=== PATIENT | male | born 1995 | race Caucasian/White ===

== ENCOUNTER 2017-04-16 07:46 | Emergency (ER) | payer BC ==
--- NOTE | 2017-04-16 07:55 | CPEKG ---
Heart Rate: 89 RR Interval: 674 P-R Interval: 156 QRSD Interval: 88 QT Interval: 352 QTC Interval: 429 P [place]: 51 QRS [place]: 44 T Wave [place]: 33 EKG Severity - NORMAL ECG - EKG Impression: SINUS RHYTHM EKG Impression: ST ELEV, PROBABLE NORMAL EARLY REPOL PATTERN Electronically Signed By: Dionne Cooper 19-Apr-2017 00:55:20
[2017-04-16 07:58] VITALS: RESP 18
[2017-04-16] MEDS ORDERED: NS 1,000 ML IV ONE (08:07)
--- NOTE | 2017-04-16 08:10 | EDPHY ---
HPI/HX/ROS/PE/MDM Narrative: CHIEF COMPLAINT: Chest pain HPI: This patient is a 21-year-old male who presents to the Emergency Department complaining of acute onset bilateral lower chest pain beginning one hour prior to arrival while playing video games. He reports that the pain increased in severity until EMS arrival but briefly subsided prior to presentation. He describes the pain as a squeezing sensation "as though his ribs were in a vice." His pain is exacerbated with breathing or with certain movements, like sitting up straight in a chair. He denies any associated complaints; no dyspnea, nausea, or abdominal pain. No history of trauma. He did have a bout of diarrhea yesterday which was treated effectively with Imodium. Medical history includes hypertension. Familial history includes hypertension, diabetes, and cholecystitis. REVIEW OF SYSTEMS: Aside from elements discussed in the HPI, a comprehensive 10-point review of systems was reviewed and is negative. PMH: Hypertension SOCIAL HISTORY: Mother at bedside. Non-smoker. PHYSICAL EXAM: General:Patient is alert, in no acute distress. ENT:Eyes are normal to inspection. ENT inspection normal. Neck: Normal inspection. Full range of motion. Respiratory:No respiratory distress. Breath sounds normal bilaterally. Cardiovascular: Regular rate and rhythm. Strong peripheral pulses. Normal cap refill. Abdomen:The abdomen is nontender to palpation. There are no peritoneal signs. There are normal bowel sounds. Back: Normal to inspection. No tenderness to palpation. Skin: Normal color. No rash. Warm and dry. Extremities: Normal appearance. Full range of motion. Neuro: Oriented x3. Normal motor function. Normal sensory function. ED Course: 21-year-old male with familial history of hypertension and cholecystitis complains of sudden onset bilateral lower rib pain that is exacerbated with some movements and with taking a deep breath. There is some suggestion that his pain has been intermittent in nature since time of presentation approximately one hour prior to arrival. He is hypertensive at 158/96 at time of arrival but has otherwise normal vitals. There are no significant findings on exam. He is not tachypneic or tachycardic. There is no abdominal tenderness. Will proceed with EKG, chest x-ray, and labs including D-dimer and Troponin. IV established. 1L IV NS administered. EKG was ordered and interpreted by myself. Please see [employer] system for official reading. Chest x-ray reviewed and is normal. No pneumothorax or other acute process. Labs obtained and are largely unremarkable. D-dimer is negative. Troponin is negative. UA obtained and is normal. I discussed lab, UA, imaging, and EKG findings with the patient. At this time, there is no clear etiology for the patient's chest pain. On reevaluation, his pain has subsided. He is able to ambulate around the department without recurrence of his complaint. I do not feel that further evaluation is warranted at this time. I have given him strict return precautions and instructions to follow-up with cardiology for further evaluation this week. He is agreeable to this and will be discharged home in good condition. MDM: This is a young healthy male who presents with episodic bilateral squeezing chest pain. The patient presents with chest pain, but workup in the Emergency Department is negative. The patient is hemodynamically stable and comfortable with the plan of discharge and close follow-up as an outpatient. As part of an extensive differential, the following life-threatening etiologies of chest pain were considered and found to be unlikely: Acute Coronary Syndrome - This is unlikely as troponin and ECG are negative and patient has no specific risk factors for this disease. Pneumonia - The patient is afebrile and has a clear CXR. Thoracic Aortic Dissection - The patient is not significantly hypertensive and nature of the chest pain is not typical for this disease. CXR shows no stigmata of TAD. Pulmonary Embolus - The patient has no risk factors for this disease per Well's Criteria. D-dimer is negative. Clinical exam and history are not consistent with acute PE. Pericarditis- The patient is afebrile and has a normal ECG. Additionally, patient has no epigastric tenderness or abnormal LFTs to suggest gallbladder disease. The patient was advised of these results and was given strict return precautions. At time of discharge he is ambulating and eating without any difficulty or return of symptoms. Patient was advised that etiology of symptoms is unknown. - Data Points Imaging Results: Imaging Impressions Chest X-Ray 04/16/17 08:07 Impression: Normal. No pneumothorax or acute process. Laboratory Results: Laboratory Results 04/16/17 08:00 04/16/17 04/16/17 04/16/17 09:00 08:00 08:00 WBC RBC Hgb Hct MCV MCH MCHC RDW Plt Count MPV Neut % (Auto) Lymph % (Auto) Leon % (Auto) Eos % (Auto) Baso % (Auto) Nucleat RBC Rel Count Absolute Neuts (auto) Absolute Lymphs (auto) Absolute Monos (auto) Absolute Eos (auto) Absolute Basos (auto) Absolute Nucleated RBC Immature Gran % Immature Gran # D-Dimer < 0.27 ug/mLFEU ug/mLFEU (0.00-0.50) Total Bilirubin 0.8 mg/dL mg/dL (0.1-1.4) Conjugated Bilirubin 0.3 mg/dL mg/dL (0.0-0.5) Unconjugated Bilirubin 0.5 mg/dL mg/dL (0.0-1.1) AST 48 IU/L IU/L (17-59) ALT 65 IU/L IU/L (21-72) Alkaline Phosphatase 136 IU/L H IU/L (38-126) Troponin I < 0.012 ng/mL ng/mL (0-0.034) Total Protein 8.5 g/dL H g/dL (6.3-8.2) Albumin 5.1 g/dL H g/dL (3.5-5.0) Lipase 74.0 IU/L IU/L (23-300) Urine Color YELLOW Urine Appearance CLEAR Urine pH 6.0 (5.0-7.5) Ur Specific [place] 1.017 (1.002-1.030) Urine Protein NEGATIVE (NEGATIVE) Urine Ketones TRACE H (NEGATIVE) Urine Blood NEGATIVE (NEGATIVE) Urine Nitrate NEGATIVE (NEGATIVE) Urine Bilirubin NEGATIVE (NEGATIVE) Urine Urobilinogen NEGATIVE EU EU (0.2-1.0) Ur Leukocyte Esterase NEGATIVE (NEGATIVE) Urine Glucose NEGATIVE (NEGATIVE) 04/16/17 08:00 WBC 9.09 10^3/uL 10^3/uL (3.80-9.50) RBC 5.44 10^6/uL 10^6/uL (4.40-6.38) Hgb 16.6 g/dL g/dL (13.7-17.5) Hct 48.4 % % (40.0-51.0) MCV 89.0 fL fL (81.5-99.8) MCH 30.5 pg pg (27.9-34.1) MCHC 34.3 g/dL g/dL (32.4-36.7) RDW 13.0 % % (11.5-15.2) Plt Count 361 10^3/uL 10^3/uL (150-400) MPV 10.2 fL fL (8.7-11.7) Neut % (Auto) 59.1 % % (39.3-74.2) Lymph % (Auto) 26.7 % % (15.0-45.0) Leon % (Auto) 8.3 % % (4.5-13.0) Eos % (Auto) 5.4 % % (0.6-7.6) Baso % (Auto) 0.3 % % (0.3-1.7) Nucleat RBC Rel Count 0.0 % % (0.0-0.2) Absolute Neuts (auto) 5.37 10^3/uL 10^3/uL (1.70-6.50) Absolute Lymphs (auto) 2.43 10^3/uL 10^3/uL (1.00-3.00) Absolute Monos (auto) 0.75 10^3/uL 10^3/uL (0.30-0.80) Absolute Eos (auto) 0.49 10^3/uL H 10^3/uL (0.03-0.40) Absolute Basos (auto) 0.03 10^3/uL 10^3/uL (0.02-0.10) Absolute Nucleated RBC 0.00 10^3/uL 10^3/uL (0-0.01) Immature Gran % 0.2 % % (0.0-1.1) Immature Gran # 0.02 10^3/uL 10^3/uL (0.00-0.10) D-Dimer Total Bilirubin Conjugated Bilirubin Unconjugated Bilirubin AST ALT Alkaline Phosphatase Troponin I Total Protein Albumin Lipase Urine Color Urine Appearance Urine pH Ur Specific [place] Urine Protein Urine Ketones Urine Blood Urine Nitrate Urine Bilirubin Urine Urobilinogen Ur Leukocyte Esterase Urine Glucose Medications Given: Discontinued Medications Sodium Chloride (Ns) 1,000 mls @ 0 mls/hr IV ONCE ONE; Wide Open PRN Reason: Protocol Stop: 04/16/17 08:08 Last Admin: 04/16/17 08:27 Dose: 1,000 mls Ketorolac Tromethamine (Toradol) 15 mg IVP EDNOW ONE Stop: 04/16/17 08:53 Last Admin: 04/16/17 08:58 Dose: 15 mg General Time Seen by Provider: 04/16/17 07:50 Initial Vital Signs: Initial Vital Signs Temperature (C) 36.9 C 04/16/17 07:55 Heart Rate 97 04/16/17 07:55 Respiratory Rate 18 04/16/17 07:55 Blood Pressure 158/96 H 04/16/17 07:55 O2 Sat (%) 95 04/16/17 07:55 O2 Delivery Mode Room Air Allergies/Adverse Reactions: No Known Allergies Allergy (Unverified 04/16/17 07:55) Home Medications: Medication Instructions Recorded NK [No Known Home Meds] 04/16/17 Departure - Departure Disposition: Home, Routine, Self-Care Clinical Impression: Atypical chest pain Condition: Good Instructions: Chest Pain (ED) Additional Instructions: 1. Call to schedule a follow-up appointment with a lieutenant shift supervisor for further evaluation. 2. As we discussed, we did not find an explanation for your chest pain today. You should return to the Emergency Department immediately if your pain returns or if you experience shortness of breath, nausea or vomiting, or for other serious concerns. Referrals: [facility] OROSCO [Other] - As per Instructions Vic Serrano MD [Medical Doctor] - As per Instructions Report Scribed for: Rm Ambriz Report Scribed by: Brenda Oswald Date of Report: 04/16/17 Time of Report: 08:02 Physician Review and Approval Statement: Portions of this note were transcribed by an ED scribe. I personally performed the history, physical exam, and medical decision making; and confirm the accuracy of the information in the transcribed note.
[2017-04-16 08:16] LABS: % IMMATURE GRANULYOCYTES 0.2 % (0.0-1.1); ABSOLUTE IMMATURE GRANULOCYTES 0.02 10^3/uL (0.00-0.10); ADD DIFF? NO; ADD MORPH? NO; ADD SCAN? NO; ATYPICAL LYMPHOCYTE FLAG 0 (0-99); FRAGMENT RBC FLAG 0 (0-99); HEMATOCRIT 48.4 % (40.0-51.0); HEMOGLOBIN 16.6 g/dL (13.7-17.5); LEFT SHIFT FLG 0 (0-99); LIPEMIA HEMOLYSIS FLAG 90 (0-99); MEAN CELL HEMOGLOBIN 30.5 pg (27.9-34.1); MEAN CELL HEMOGLOBIN CONCENTR. 34.3 g/dL (32.4-36.7); MEAN PLATELET VOLUME 10.2 fL (8.7-11.7); PLATELET CLUMPS FLAG 0 (0-99); PLATELET COUNT 361 10^3/uL (150-400); RED BLOOD CELL COUNT 5.44 10^6/uL (4.40-6.38)
[2017-04-16 08:28] LABS: ALANINE AMINOTRANSFERASE 65 IU/L (21-72); ALBUMIN 5.1 g/dL (3.5-5.0); ALKALINE PHOSPHATASE 136 IU/L (38-126); ASPARTATE AMINOTRANSFERASE 48 IU/L (17-59); BILIRUBIN,TOTAL 0.8 mg/dL (0.1-1.4); BILIRUBIN-CONJUGATED 0.3 mg/dL (0.0-0.5); BILIRUBIN-UNCONJUGATED 0.5 mg/dL (0.0-1.1); TOTAL PROTEIN 8.5 g/dL (6.3-8.2)
[2017-04-16 08:40] LABS: TROPONIN I < 0.012 ng/mL (0-0.034)
[2017-04-16] MEDS ORDERED: KETOROLAC 30 MG/1 ML SDV IVP ONE (08:52)
[2017-04-16 09:14] LABS: COLOR YELLOW; LEUKOCYTE ESTERASE,URINE NEGATIVE (NEGATIVE); NITRITE,URINE NEGATIVE (NEGATIVE)
[2017-04-16 10:07] VITALS: BP 125/58; PULSE 83; TEMP 98.2; O2SAT 96
== END 2017-04-16 10:07 | disposition home or self-care (01) ==
DX: R07.89 Other chest pain (principal); I10 Essential (primary) hypertension; E86.9 Volume depletion, unspecified
CPT/HCPCS: 96374; J1885